=== PATIENT | female | born 1955 | race Caucasian/White ===

== ENCOUNTER 2017-12-14 10:26 | Outpatient (CLI) | payer BC ==
--- NOTE | 2017-12-14 12:46 | RAD ---
FRONTAL AND LATERAL IMAGING THORACIC SPINE: Date: 12-14-17 Comparison: None. History: Pain, fall. FINDINGS: Thoracic pedicles appear intact on frontal imaging. There is multilevel mid thoracic spine disc space narrowing with associated mild anterior osteophyte formation. No acute fracture. IMPRESSION: No acute osseous abnormality. POS: [facility]
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
== END 2017-12-14 10:27 | disposition home or self-care (01) ==
LOC: TBSIIMAG 10:26
PROVIDERS: ATTEND Neurological Surgery
DX: M54.2 Cervicalgia (principal); M54.6 Pain in thoracic spine; M47.892 Other spondylosis, cervical region
CPT/HCPCS: 72040; 72070

== ENCOUNTER 2018-02-05 14:42 | Outpatient (CLI) | payer BC ==
--- NOTE | 2018-02-05 16:18 | MRI ---
MRI THORACIC SPINE WITHOUT CONTRAST: Date: 02/05/18 HISTORY: Upper back pain. COMPARISON: Radiograph from 12/14/17. FINDINGS: The aortic contour is normal. No aneurysmal dilatation. Visualized portions of upper poles of the kid neys are unremarkable. Paraspinal musculature is symmetric and normal. Normal marrow signal of the spine. No fracture. No ma lalignment. No significant degenerative disc space narrowing. No neural foraminal or spinal canal margy rowing. IMPRESSION: No acute abnormality of the spine. No fracture or malalignment, neural foraminal narrowing, or spinal canal narrowing. POS: [facility]
== END 2018-02-05 14:43 | disposition home or self-care (01) ==
LOC: SCSMRI 14:42
PROVIDERS: ATTEND Internal Medicine
DX: M54.5 Low back pain (principal)
CPT/HCPCS: 72146

== ENCOUNTER 2018-04-21 13:14 | Emergency (ER) | payer BC ==
[2018-04-21] MEDS ORDERED: Ondansetron ODT 8 MG TAB ONE (13:44)
[2018-04-21 14:03] LABS: #Eosinphils 0.1 thou/uL (0.0-0.7); #Lymphocytes 1.3 thou/uL (1.20-3.40); #Monocytes 0.4 thou/uL (0.11-0.59); #Neutrophils 3.8 thou/uL (1.40-6.50); %Basophils 0.8 % (0.0-1.0); %Eosinophils 2.5 % (0.0-10.0); %Lymphocytes 23.1 % (21.0-51.0); %Monocytes 6.9 % (0.0-10.0); %Neutrophils 66.7 % (42.0-75.0); Hemoglobin 12.3 g/dL (12.0-16.0); Mean Corpuscular HGB CONC 34.6 g/dL (32.0-36.0); Mean Corpuscular Hemoglobin 32.6 pg (27.0-31.0); Mean Corpuscular Volume 94.2 fL (78.0-98.0); Platelet Count 252 thou/uL (130-400); RBC Distribution Width 11.8 % (11.5-14.5); Red Blood Cell (RBC) Count 3.78 mill/uL (4.20-5.40); White Blood Cell (WBC) Count 5.6 thou/uL (4.8-10.8)
[2018-04-21 14:14] LABS: ALT (SGPT) 13 U/L (8-55); AST (SGOT) 17 U/L (5-34); Albumin 4.1 g/dL (3.4-4.8); Alkaline Phosphatase 60 U/L (40-150); Anion Gap 12 mmol/L (10-20); BUN (Urea Nitrogen) 11 mg/dL (9.8-20.1); Bilirubin, Total 0.3 mg/dL (0.2-1.2); Calc. Creatinine Clearance 0 mL/min (70-130); Calcium 9.7 mg/dL (7.8-10.44); Carbon Dioxide 25 mmol/L (23-31); Chloride 106 mmol/L (98-107); Estimated GFR-MDRD 86; Globulin 2.6 g/dL (2.4-3.5); Glucose 93 mg/dL (80-115); Lipase 14 U/L (8-78); Potassium 4.4 mmol/L (3.5-5.1); Protein, Total 6.7 g/dL (6.0-8.3); Sodium 139 mmol/L (136-145)
--- NOTE | 2018-04-21 14:46 | ULT ---
GALLBLADDER ULTRASOUND: INDICATION: Right upper quadrant pain for 1 week. FINDINGS: There is no focal hepatic lesion or acute gallbladder pathology. There is a focus of increased echog enicity of the gallbladder with ring-down artifact. The finding does not mobilize with positioning. There is no pericholecystic fluid or significant gallbladder wall thickening. The imaged common lynne t is normal at 5 mm. Bailey's sign is reported as negative by the [facility]. IMPRESSION: Findings which may relate to adenomyomatosis of the gallbladder wall. Otherwise, no acute gallbladde r pathology. POS: [facility]
[2018-04-21] MEDS ORDERED: Meropenem 2 GM, Admixture Fee 1 EACH in Sodium Chloride 0.9% 100 ML IVPB SCH (15:15)
[2018-04-21 15:18] LABS: Bilirubin Negative (Negative); Blood, Urine Trace (Negative); Clarity CLEAR (Clear); Glucose, Urine (Dipstick) Negative (Negative); Leukocyte Moderate (Negative); Nitrite Negative (Negative); Protein, Urine (Dipstick) Negative (Neg-Trace); Specific Gravity, Urine 1.003 (1.002-1.036); Urobilinogen 0.2 mg/dL (0.2-1.0); pH, Urine 7.5 (5.0-9.0)
[2018-04-21 15:21] LABS: Bacteria/HPF None Seen HPF (None Seen); Hyaline Casts/LPF 0-3 HYALINE CAST LPF (0-3 Hyaline); Pathc Cast-AUWi Flag 0.14 (0-2.49); RBC/HPF 0-3 HPF (0-3); Squamous Epithelial 0-3 HPF (0-3)
[2018-04-21] MEDS ORDERED: HYDROcodone/Acetaminophen 5/325 mg Tablet ONE (15:32)
== END 2018-04-21 15:43 | disposition home or self-care (01) ==
LOC: ERS 13:14
DX: K80.50 Calculus of bile duct without cholangitis or cholecystitis without obstruction (principal); I10 Essential (primary) hypertension; Z79.899 Other long term (current) drug therapy
CPT/HCPCS: 36415; 76705; 80053; 81003; 81015; 83690; 85025; 93005; 96361; 96374; J2185; J2270; J7050

== ENCOUNTER 2018-04-27 07:29 | Day surgery (SDC) | payer BC ==
[2018-04-26 11:16] VITALS: BMI 29.2
[2018-04-27] MEDS ORDERED: Clindamycin/D5W 600 mg/50 ml Premix Bag ONE (08:01)
[2018-04-27] MEDS ORDERED: Midazolam HCl 2 mg/2 ml Vial ONE ×2 (08:34→10:06)
[2018-04-27] MEDS ORDERED: Bupivacaine HCl 0.25%/Epi 0.0005/PF 10 ML VIAL FS ONE (09:45)
[2018-04-27] MEDS ORDERED: Fentanyl 250 MCG/5 ML VIAL ONE (10:06)
--- NOTE | 2018-04-27 11:20 | OP ---
DATE OF PROCEDURE: 04/27/2018 PREOPERATIVE DIAGNOSIS: Symptomatic cholelithiasis. SURGEON: Aníbal Randle M.D. PROCEDURE PERFORMED: Laparoscopic cholecystectomy. INDICATIONS: A 63-year-old female who has been having severe episodic right upper quadrant pain. CT and ultrasound suggests cholelithiasis. FINDINGS: Long small cystic duct, large gallbladder. DESCRIPTION OF PROCEDURE: After informed consent was obtained, the patient was taken to the operatin g room. She was given general endotracheal anesthesia. She was placed in the supine position. Her abdomen was prepped and draped in the usual fashion. Local anesthesia infiltrated subcutaneously and deep subumbilical incision was performed. Subcu divided sharply. The fascia grasped and two stay s utures of 0 Vicryl placed each side of midline. Midline incised. Digital palpation revealed no loca l adhesions. A blunt 10-12 mm trocar inserted. Pneumoperitoneum was created to a pressure of 15 mmH g. Zero degree laparoscope inserted under direct vision, three 5 mm ports placed subcostally. Gallb ladder grasped advanced superiorly. The peritoneum was lysed distally reveal small cystic duct and a rtery. These were triply ligated with Hemoclips and divided. Gallbladder removed from its fossa uti lizing electrocautery and removed from the abdomen through the umbilical port. Hemostasis was assure d. Trocars and retractors removed. The fascia closed with interrupted 0 Vicryl suture. The skin cl osed with interrupted 4-0 Rapide. Dermabond applied.
[2018-04-27] MEDS ORDERED: Promethazine HCl 25 MG/ML VIAL ONE (11:30)
[2018-04-27] MEDS ORDERED: Fentanyl 100 MCG/2 ML VIAL ONE (11:43)
[2018-04-27] MEDS ORDERED: HYDROcodone/Acetaminophen 5/325 mg Tablet ONE ×2 (13:05)
[2018-04-27] MEDS ORDERED: Lidocaine 1% PF 5 ML VIAL ONE (13:37)
[2018-04-27] MEDS ORDERED: PROPOFOL 200 MG/20 ML VIAL ONE (13:37)
[2018-04-27] MEDS ORDERED: Dexamethasone 20 MG/5 ML VIAL ONE (13:37)
[2018-04-27] MEDS ORDERED: Glycopyrrolate 0.2 MG/ML 5 ML SYRINGE ONE (13:37)
[2018-04-27] MEDS ORDERED: Ondansetron HCl/PF 4 MG/2 ML Vial ONE (13:37)
[2018-04-27] MEDS ORDERED: Ketorolac Tromethamine 30 MG/ML VIAL ONE (13:37)
== END 2018-04-27 13:50 | disposition home or self-care (01) ==
LOC: SDC 07:29
PROVIDERS: ATTEND Surgery
PROC: 0FT44ZZ Resection of Gallbladder, Percutaneous Endoscopic Approach (ICD-10-PCS; principal; 2018-04-27)
DX: K80.10 Calculus of gallbladder with chronic cholecystitis without obstruction (principal); G89.29 Other chronic pain; M54.5 Low back pain; R56.9 Unspecified convulsions; F43.10 Post-traumatic stress disorder, unspecified; F41.9 Anxiety disorder, unspecified; M81.0 Age-related osteoporosis without current pathological fracture; E78.00 Pure hypercholesterolemia, unspecified; G43.909 Migraine, unspecified, not intractable, without status migrainosus; Z79.899 Other long term (current) drug therapy; Z88.2 Allergy status to sulfonamides; Z88.0 Allergy status to penicillin; Z88.1 Allergy status to other antibiotic agents; Z88.5 Allergy status to narcotic agent; Z88.8 Allergy status to other drugs, medicaments and biological substances
CPT/HCPCS: 88304; 96374; 96375; J1100; J1885; J2001; J2250; J2405; J2550; J2704; J3010; J3490

== ENCOUNTER 2018-05-12 12:26 | Emergency (ER) | payer BC ==
[2018-05-12 13:18] LABS: Bilirubin Negative (Negative); Blood, Urine Trace (Negative); Clarity CLEAR (Clear); Glucose, Urine (Dipstick) Negative (Negative); Leukocyte Small (Negative); Nitrite Negative (Negative); Protein, Urine (Dipstick) Negative (Neg-Trace); Specific Gravity, Urine 1.021 (1.002-1.036); Urobilinogen 0.2 mg/dL (0.2-1.0); pH, Urine 6.5 (5.0-9.0)
[2018-05-12 13:21] LABS: Bacteria/HPF None Seen HPF (None Seen); Hyaline Casts/LPF 0-3 HYALINE CAST LPF (0-3 Hyaline); Pathc Cast-AUWi Flag 0.29 (0-2.49); Squamous Epithelial 0-3 HPF (0-3); WBC/HPF 0-3 HPF (0-3)
[2018-05-12 13:40] LABS: #Basophils 0.1 thou/uL (0.0-0.2); #Eosinphils 0.1 thou/uL (0.0-0.7); #Lymphocytes 1.5 thou/uL (1.20-3.40); #Monocytes 0.3 thou/uL (0.11-0.59); #Neutrophils 3.4 thou/uL (1.40-6.50); %Basophils 1.3 % (0.0-1.0); %Eosinophils 1.3 % (0.0-10.0); %Lymphocytes 28.2 % (21.0-51.0); %Monocytes 5.3 % (0.0-10.0); %Neutrophils 63.9 % (42.0-75.0); Hemoglobin 13.6 g/dL (12.0-16.0); Mean Corpuscular HGB CONC 34.1 g/dL (32.0-36.0); Mean Corpuscular Hemoglobin 31.7 pg (27.0-31.0); Mean Corpuscular Volume 93.2 fL (78.0-98.0); Mean Platelet Volume 6.5 fL (7.4-10.4); Platelet Count 334 thou/uL (130-400); RBC Distribution Width 12.1 % (11.5-14.5); Red Blood Cell (RBC) Count 4.29 mill/uL (4.20-5.40); White Blood Cell (WBC) Count 5.3 thou/uL (4.8-10.8)
[2018-05-12] MEDS ORDERED: Ondansetron HCl/PF 4 MG/2 ML Vial ONE ×2 (13:44→14:36)
[2018-05-12 14:03] LABS: CK (CPK) 48 U/L (29-168); Lipase 21 U/L (8-78)
--- NOTE | 2018-05-12 16:11 | RAD ---
ACUTE ABDOMINAL SERIES: 05/12/2018 HISTORY: Abdominal pain. Nausea and vomiting. Post cholecystectomy on 04/27/2018. COMPARISON: 02/25/2014 FINDINGS: CHEST: There is a calcified granuloma overlying the right upper lung zone. The lungs are otherwise clear. The cardiac silhouette and pulmonary vasculature are within normal limits. There has been no t interval change from the prior exam. ABDOMEN: Upright and spine views show no free intraperitoneal air seen beneath the hemidiaphragm. S urgical clips overly the right upper quadrant. There is a nonspecific bowel gas pattern. Multiple c alcifications overly the pelvis, the majority of which appear to represent phleboliths. The osseous structures appear intact. IMPRESSION: Nonspecific bowel gas pattern. POS: [facility]
[2018-05-12] MEDS ORDERED: Bisacodyl 10 MG SUPP ONE (16:48)
[2018-05-12 17:23] LABS: ALT (SGPT) 11 U/L (8-55); AST (SGOT) 15 U/L (5-34); Albumin 4.8 g/dL (3.4-4.8); Alkaline Phosphatase 74 U/L (40-150); Anion Gap 15 mmol/L (10-20); BUN (Urea Nitrogen) 8 mg/dL (9.8-20.1); Bilirubin, Total 0.4 mg/dL (0.2-1.2); Calc. Creatinine Clearance 0 mL/min (70-130); Calcium 10.1 mg/dL (7.8-10.44); Carbon Dioxide 22 mmol/L (23-31); Chloride 103 mmol/L (98-107); Estimated GFR-MDRD 82; Globulin 2.7 g/dL (2.4-3.5); Glucose 89 mg/dL (80-115); Potassium 4.4 mmol/L (3.5-5.1); Protein, Total 7.5 g/dL (6.0-8.3); Sodium 136 mmol/L (136-145)
== END 2018-05-12 19:41 | disposition home or self-care (01) ==
LOC: ERS 12:26
DX: K59.03 Drug induced constipation (principal); T40.2X5A Adverse effect of other opioids, initial encounter; I10 Essential (primary) hypertension; Z79.899 Other long term (current) drug therapy
CPT/HCPCS: 74022; 80053; 81003; 81015; 82550; 83690; 85025; 96361; 96374; 96376; J2405

== ENCOUNTER 2018-07-03 07:26 | Outpatient (CLI) | payer BC ==
--- NOTE | 2018-07-03 15:04 | NM ---
NUCLEAR MEDICINE GASTRIC EMPTYING SCAN 07/03/18 HISTORY: Recent cholecystectomy. Nausea and vomiting. COMPARISON: None. TECHNIQUE: Utilizing a standard egg mixture, 2 mL of technetium 99m sulfur colloid was ingested orally. FINDINGS: 0% at 0 minutes. 15% at 27 minutes. 26% at 59 minutes. 50% at 125 minutes. 91% at 186 minutes. 97% at 236 minutes. T1/2 time is 123 minutes. IMPRESSION: Slightly increased T1/2 halftime of 123 minutes. POS: [facility]
== END 2018-07-03 07:27 | disposition home or self-care (01) ==
LOC: NM 07:26
PROVIDERS: ATTEND Internal Medicine Gastroenterology
DX: R11.2 Nausea with vomiting, unspecified (principal); R94.8 Abnormal results of function studies of other organs and systems
CPT/HCPCS: 78264; A9541

== ENCOUNTER 2018-10-16 13:22 | Emergency (ER) | payer BC ==
[2018-10-16] MEDS ORDERED: Promethazine HCl 25 MG/ML VIAL ONE (14:17)
[2018-10-16] MEDS ORDERED: diphenhydrAMINE 50 MG/ML VIAL ONE (14:18)
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
== END 2018-10-16 15:22 | disposition home or self-care (01) ==
LOC: ERS 13:22
DX: S06.0X0A Concussion without loss of consciousness, initial encounter (principal); S16.1XXA Strain of muscle, fascia and tendon at neck level, initial encounter; S80.12XA Contusion of left lower leg, initial encounter; M81.0 Age-related osteoporosis without current pathological fracture; I10 Essential (primary) hypertension; F41.9 Anxiety disorder, unspecified; W18.30XA Fall on same level, unspecified, initial encounter; Y93.02 Activity, running; Z79.899 Other long term (current) drug therapy
CPT/HCPCS: 70450; 72125; 96365; 96375; J1200; J2550

== ENCOUNTER 2018-12-13 14:38 | Outpatient (CLI) | payer BC ==
--- NOTE | 2018-12-13 15:43 | BD ---
DEXA BONE DENSITY STUDY: Date: 12/13/18 HISTORY: 63-year-old postmenopausal female for screening. COMPARISON: None. FINDINGS: Lumbar Spine: BMD (g/cm2) L1 0.870 T-Score: -1.1 L2 0.875 T-Score: -1.4 L3 0.861 T-Score: -2.0 L4 0.957 T-Score: -0.9 L1-L4 0.895 T-Score: -1.4 Left Femoral Neck: 0.619 T-Score: -2.1 Total Femur: 0.689 T-Score: -2.1 IMPRESSION: Osteopenia. This patient has between a 5-6x increased risk for fracture when compared with young bailey ents with normal bone mineral density. POS: [facility]
== END 2018-12-13 14:39 | disposition home or self-care (01) ==
LOC: BICMAMMO 14:38
PROVIDERS: ATTEND Student in an Organized Health Care Education/Training Program
DX: M81.0 Age-related osteoporosis without current pathological fracture (principal); M85.89 Other specified disorders of bone density and structure, multiple sites
CPT/HCPCS: 77080

== ENCOUNTER 2019-03-04 08:20 | Outpatient (CLI) | payer BC ==
[2019-03-04 09:03] LABS: Estimated GFR-MDRD - POC Greater than 90
[2019-03-04] MEDS ORDERED: Iopamidol 370 76% 100 ML VIAL ONE (10:55)
--- NOTE | 2019-03-04 11:07 | CT ---
CT THORAX WITH IV CONTRAST: Date: 03/04/19 INDICATION: History of shortness of breath. COMPARISON: Prior CT of the thorax dated 01/16/12. FINDINGS: No suspicious pulmonary nodule is identified. No air space consolidation or pleural effusion is noted . No pathologically enlarged lymph nodes are present. The visualized upper abdomen demonstrates post cholecystectomy changes and as mall left renal cyst. No acute osseous abnormality is identified. Ther e is mild scattered degenerative and osteoarthritic change. IMPRESSION: 1. No suspicious pulmonary nodule. No acute cardiopulmonary abnormality demonstrated. 2. Cholecystectomy. 3. Small left renal cyst. POS: [facility]
== END 2019-03-04 08:21 | disposition home or self-care (01) ==
LOC: CT 08:20
PROVIDERS: ATTEND Internal Medicine
DX: J98.4 Other disorders of lung (principal); R06.00 Dyspnea, unspecified; N28.1 Cyst of kidney, acquired; Z90.49 Acquired absence of other specified parts of digestive tract
CPT/HCPCS: 71260; 82565; Q9967

== ENCOUNTER 2019-04-30 10:33 | Outpatient (CLI) | payer BC ==
--- NOTE | 2019-04-30 10:45 | RAD ---
XR Chest Pa Lat @ [facility] HISTORY: Dyspnea COMPARISON: CT examination of 03/04/2019. FINDINGS: Heart size and mediastinum are within normal limits. The lungs are clear of infiltrates. Edward skyler appear demineralized. There are arthritic changes of the thoracic spine. IMPRESSION: No active intrathoracic disease.
== END 2019-04-30 10:34 | disposition home or self-care (01) ==
LOC: RAD 10:33
PROVIDERS: ATTEND Internal Medicine Critical Care Medicine
DX: R06.00 Dyspnea, unspecified (principal)
CPT/HCPCS: 36415; 71046; 85379

== ENCOUNTER 2019-11-14 09:01 | Outpatient (CLI) | payer BC ==
--- NOTE | 2019-11-15 10:45 | NM ---
THYROID SCAN AND UPRIGHT: Date: 11/14/2019 HISTORY: Thyrotoxicosis. TECHNIQUE/FINDINGS: Examination is performed using 235 microcuries I-123 capsule administered orally. This shows a normal distribution of the radiopharmaceutical within the gland. The right lobe measures 5.1 cm and the lef t lobe measures 4.9 cm in length. The 6 hour uptake is elevated at 50% and the 24 hour uptake is elevated at 62%. The normal range is 6 -18% and 10-30%, respectively. IMPRESSION: Elevated 24 hour uptake of 62%. POS: [facility]
== END 2019-11-14 09:02 | disposition home or self-care (01) ==
LOC: NM 09:01
PROVIDERS: ATTEND Internal Medicine Endocrinology, Diabetes & Metabolism
DX: E05.90 Thyrotoxicosis, unspecified without thyrotoxic crisis or storm (principal)
CPT/HCPCS: 78014; A9516

== ENCOUNTER 2020-01-22 13:56 | Outpatient (CLI) | payer BC ==
--- NOTE | 2020-01-22 14:18 | RAD ---
CHEST TWO VIEWS: 01/22/20 INDICATION: History of dyspnea. COMPARISON: Prior exam dated 02/25/14. FINDINGS: The lungs are hyperinflated but clear. Mild cardiomegaly is stable. No acute osseous abnormalities ev ident. IMPRESSION: No acute abnormality. POS: [facility]
== END 2020-01-22 13:57 | disposition home or self-care (01) ==
LOC: RAD 13:56
PROVIDERS: ATTEND Internal Medicine Critical Care Medicine
DX: R06.00 Dyspnea, unspecified (principal)
CPT/HCPCS: 71046

== ENCOUNTER 2020-04-30 14:55 | Outpatient (CLI) | payer MEDICARE ==
--- NOTE | 2020-05-11 12:01 | BD ---
EXAM: Bone densitometry using DEXA HISTORY: 65 yo female. Screening for postmenopausal osteoporosis FINDINGS: L1--bone mineral density 0.797 g/sq cm; T score -1.8 ; Z score -0.2 L2--bone mineral density 0.824 g/sq cm; T score -1.9 ; Z score -0.1 L3--bone mineral density 0.835 g/sq cm; T score -2.3 ; Z score -0.4 L4--bone mineral density 0.953 g/sq cm; T score -1.0 ; Z score 0.9 Total L1-L4--bone mineral density 0.862 g/sq cm; T score -1.7 ; Z score 0.1 Left femoral neck--bone mineral density0.605; T score -2.2 ; Z score -0.7 Total proximal left femur--bone mineral density 0.702; T score -2.0 ; Z score -0.7 There has been an interval reduction of 3.7% in the BMD of the lumbar spine and a improvement of 1. 8% in the BMD of the proximal femur since the previous study of 12/13/2018. IMPRESSION: Osteopenia
== END 2020-04-30 14:56 | disposition home or self-care (01) ==
LOC: BICMAMMO 14:55
PROVIDERS: ATTEND Student in an Organized Health Care Education/Training Program
DX: Z13.820 Encounter for screening for osteoporosis (principal); M85.89 Other specified disorders of bone density and structure, multiple sites
CPT/HCPCS: 77080

== ENCOUNTER 2020-12-28 07:12 | Emergency (ER) | payer MEDICARE, BC ==
[2020-12-28 08:20] LABS: #Lymphocytes 1.2 thou/uL (1.20-3.40); #Monocytes 0.4 thou/uL (0.11-0.59); #Neutrophils 6.4 thou/uL (1.40-6.50); %Basophils 0.3 % (0.0-1.0); %Eosinophils 0.3 % (0.0-10.0); %Lymphocytes 14.4 % (21.0-51.0); %Monocytes 5.1 % (0.0-10.0); %Neutrophils 79.9 % (42.0-75.0); Hemoglobin 13.5 g/dL (12.0-16.0); Mean Corpuscular HGB CONC 34.7 g/dL (32.0-36.0); Mean Corpuscular Hemoglobin 33.4 pg (27.0-31.0); Mean Corpuscular Volume 96.3 fL (78.0-98.0); Platelet Count 504 thou/uL (130-400); Red Blood Cell (RBC) Count 4.05 mill/uL (4.20-5.40)
[2020-12-28 08:57] LABS: T4 5.8 ug/dL (4.87-11.72); Thyroid Stimulating Hormone 0.8526 uIU/mL (0.35-4.94)
[2020-12-28 09:38] LABS: Bacteria/HPF None Seen HPF (None Seen); Bilirubin Negative (Negative); Blood, Urine 1+ (Negative); Clarity Clear (Clear); Glucose, Urine (Dipstick) Normal (Negative); Ketone, Urine Negative (Negative); Leukocyte Negative Leu/uL (Negative); Nitrite Negative (Negative); Protein, Urine (Dipstick) 20 mg/dL (Neg-Trace); Specific Gravity, Urine 1.026 (1.002-1.036); Squamous Epithelial 0-3 HPF (0-3); Urobilinogen Normal mg/dL (Less than 2); WBC/HPF 0-3 HPF (0-3)
[2020-12-28 10:59] LABS: ALT (SGPT) 12 U/L (8-55); AST (SGOT) 12 U/L (5-34); Albumin 4.1 g/dL (3.4-4.8); Alkaline Phosphatase 60 U/L (40-110); Anion Gap 13 mmol/L (10-20); Bilirubin, Total 0.3 mg/dL (0.2-1.2); Calc. Creatinine Clearance 0 mL/min (70-130); Calcium 9.1 mg/dL (7.8-10.44); Carbon Dioxide 23 mmol/L (23-31); Chloride 108 mmol/L (98-107); Globulin 2.7 g/dL (2.4-3.5); Glucose 114 mg/dL (80-115); Lipase 23 U/L (8-78); Potassium 3.4 mmol/L (3.5-5.1); Protein, Total 6.8 g/dL (5.8-8.1); Sodium 141 mmol/L (136-145)
[2020-12-28 12:14] LABS: BUN (Urea Nitrogen) 9 mg/dL (9.8-20.1)
[2020-12-28] MEDS ORDERED: Iopamidol-370 76% 500 ML 1 ML ONE (13:17)
== END 2020-12-28 12:28 | disposition home or self-care (01) ==
LOC: ERS 07:12
DX: R11.2 Nausea with vomiting, unspecified (principal); R19.7 Diarrhea, unspecified; R10.817 Generalized abdominal tenderness; I10 Essential (primary) hypertension; E05.00 Thyrotoxicosis with diffuse goiter without thyrotoxic crisis or storm; M81.0 Age-related osteoporosis without current pathological fracture; E05.90 Thyrotoxicosis, unspecified without thyrotoxic crisis or storm; Z79.899 Other long term (current) drug therapy; Z79.891 Long term (current) use of opiate analgesic
CPT/HCPCS: 36415; 74177; 80053; 81003; 81015; 83690; 84436; 84443; 84484; 85025; 93005; 94760; 96374; 96375; Q9967

== ENCOUNTER 2024-08-26 07:39 | Outpatient (CLI) | payer MEDICARE, BC | END 2024-08-26 07:40 | disposition home or self-care (01) | LOC: NM 07:39 | PROVIDERS: ATTEND Internal Medicine Gastroenterology | DX: K30 Functional dyspepsia (principal); R07.89 Other chest pain | CPT/HCPCS: 78264; A9541 ==